=== PATIENT | male | born 1980 | race Two or more races ===

== ENCOUNTER 2018-05-06 02:35 | Emergency (ER) | payer OTHER ==
[~2018-05-06] VITALS: Ht 170.2 cm; Wt 72.6 kg
[~2018-05-06 02:35] MED LIST: AMOX1TAB12 PO; CEFADROXIL500 MG PO; KETO10TA2 PO
[2018-05-06] MEDS ORDERED: BACTRIM DS TAB1 EACH PO (05:22)
[2018-05-06] MEDS ORDERED: KETO10TA2 PO (05:23)
== END 2018-05-06 14:42 | disposition home or self-care (01) ==
LOC: ER 02:35
DX: L02.211 Cutaneous abscess of abdominal wall (principal)